=== PATIENT | female | born 1980 | race Caucasian/White ===

== ENCOUNTER 2018-08-27 16:52 | Emergency (ER) | payer MEDICAID ==
[~2018-08-27] VITALS: Ht 162.6 cm; Wt 90.0 kg
[2018-08-27 17:34] VITALS: BP 117/84
[2018-08-27] MEDS ORDERED: ALBUTEROL SULFATE/IPRATROPIU 3 ML SOL IH ONE ×2 (17:35→17:45)
--- NOTE | 2018-08-27 17:35 | NUR ---
PATIENT AMBULATED TO ER BED 6.
--- NOTE | 2018-08-27 17:45 | NUR ---
38 Y/O F PRESENTS TO THE ED W/C/O SOB TODAY WITH HX OF [place]. PT 6 wks . She has been using her ventolin inhaler with no relief. A1; LMP 07/08/18. Denies abdominal pain or nvd. SKIN IS INTACT, PINK/WARM/DRY; AAOX4, PERRL, WITH EVEN AND STEADY GAIT; BILAT WHEEZES, BREATHING UNLABORED; HR EVEN AND REGULAR, BL PERIPHERAL PULSES PRESENT; PT DENIES ANY FEVER, CP, OR COUGH AT THIS TIME; PT STATES 0/10 PAIN AT THIS TIME; VSS; PATIENT POSITIONED FOR COMFORT; HOB ELEVATED; BEDRAILS UP X2; BED DOWN.
--- NOTE | 2018-08-27 17:48 | NUR ---
RT AT BEDSIDE. PT SPEAKING IN FULL SENTENCES
[2018-08-27 18:45] VITALS: BP 119/85
--- NOTE | 2018-08-27 18:46 | NUR ---
Patient discharged with v/s stable. Written and verbal after care instructions given and explained. Patient alert, oriented and verbalized understanding of instructions. Ambulatory with steady gait. All questions addressed prior to discharge. ID band removed. Patient advised to follow up with PMD. Rx of VENTOLIN given. Patient educated on indication of medication including possible reaction and side effects. Opportunity to ask questions provided and answered.
== END 2018-08-27 18:46 | disposition home or self-care (01) ==
LOC: MED 16:52
DX: O99.511 Diseases of the respiratory system complicating pregnancy, first trimester (principal); J45.909 Unspecified asthma, uncomplicated; I10 Essential (primary) hypertension; Z3A.01 Less than 8 weeks gestation of pregnancy
CPT/HCPCS: 94640; 99283; J7620

== ENCOUNTER 2020-07-18 14:07 | Emergency (ER) | payer MEDICAID ==
[~2020-07-18] VITALS: Ht 160 cm; Wt 97.5 kg
--- NOTE | 2020-07-18 14:27 | NUR ---
CALLED PT FOR TRIAGE NO ANSWER.
[2020-07-18] MEDS ORDERED: ONDANSETRON 4 MG ODT PO ONE (14:45)
[2020-07-18] MEDS ORDERED: LACTATED RINGERS 1,000 ML IV ONE ×3 (14:45→17:25)
[2020-07-18] MEDS ORDERED: MORPHINE SULFATE 4 MG/ML SYR IM ONE (14:45)
[2020-07-18 15:09] VITALS: BP 149/89
--- NOTE | 2020-07-18 15:15 | NUR ---
PT SENT TO ER LOBBY TO WAIT FOR AVAILALBE SPACE IN ED. PT MADE AWARE OF CT WITH CONTRAST AND NEED FOR IV. EXPLAINED TO PT THAT SHE CANNOT BE IN LOBBY AND MEDICATED IN LOBBY WITHOUT SUPERVISION. PT VERBALIZED UNDERSTANDING.
[2020-07-18 15:19] LABS: BASOPHILS % (AUTO) 0.6 % (0.0-2.0); EOSINOPHILS # (AUTO) 0.2 K/uL (0-0.4); EOSINOPHILS % (AUTO) 3.6 % (0.0-4.0); HEMATOCRIT 37.8 % (36-48); HEMOGLOBIN 12.7 g/dL (12.0-16.0); LYMPHOCYTES # (AUTO) 1.4 K/uL (2.5-16.5); LYMPHOCYTES % (AUTO) 26.8 % (20.5-51.1); MEAN CORPUSCULAR HEMOGLOBIN 28 pg (27-31); MEAN CORPUSCULAR HGB CONC 34 g/dL (33-37); MONOCYTES # (AUTO) 0.6 K/uL (0.8-1.0); MONOCYTES % (AUTO) 11.8 % (1.7-9.3); NEUTROPHILS # (AUTO) 2.9 K/uL (1.8-7.7); NEUTROPHILS % (AUTO) 57.2 % (42.2-75.2); PLATELET COUNT (AUTO) 104 K/uL (140-450); RED CELL DISTRIBUTION WIDTH 14.3 % (11.6-13.7); WHITE BLOOD COUNT (AUTO) 5.1 K/uL (4.8-10.8)
[2020-07-18 15:41] LABS: ALBUMIN 4.2 g/dL (3.4-5.0); ANION GAP 12.8 (8-16); CARBON DIOXIDE 24.8 mmol/L (21-32); CREATININE 0.7 mg/dL (0.6-1.3); POTASSIUM 3.6 mmol/L (3.5-5.1); TOTAL BILIRUBIN 0.8 mg/dL (0.0-1.0)
[2020-07-18] MEDS ORDERED: ONDANSETRON 4 MG/2 ML VIAL IVP ONE (16:25)
[2020-07-18] MEDS ORDERED: MORPHINE SULFATE 4 MG/ML SYR IVP ONE (16:25)
--- NOTE | 2020-07-18 16:30 | NUR ---
U/A WAS COLLECTED AND PREG WAS DONE, SENT TO LAB
--- NOTE | 2020-07-18 17:10 | NUR ---
PT WENT TO CT
--- NOTE | 2020-07-18 17:37 | NUR ---
PT BACK FROM CT
--- NOTE | 2020-07-18 18:36 | NUR ---
PT WAS D/C WITH VSS. PT IV WAS D/C. PT WAS INSTRCUTED TO FOLLOW UP WITH PCP AND EDUCATED ON IN HOME CARE. PT UNDWERSTOOD. NO SIGN OF DISTRESS NOTED. PT AMBULATED OUT OF ER. PT RECIEVED MEDICATION PRESCRIPTIONS. FAMILY TO MASTER PILOT PT.
[2020-07-18 18:37] VITALS: BP 143/78
--- NOTE | 2020-07-18 18:39 | NUR ---
PT RECIEVED A COPY OF HER CT REPORT
[2020-07-18 20:38] LABS: APPEARANCE,URINE SL CLOUDY (CLEAR); BILIRUBIN,URINE NEGATIVE (NEGATIVE); BLOOD, URINE NEGATIVE (NEGATIVE); COLOR,URINE YELLOW (YELLOW); LEUKOCYTE ESTERASE ,URINE NEGATIVE (NEGATIVE); NITRITE, URINE NEGATIVE (NEGATIVE); UGLUCOSE NEGATIVE (NEGATIVE)
--- NOTE | 2020-07-19 12:40 | NUR ---
LATE ENTRY -- LR INFUSION END TIME 6002 07/18/20
== END 2020-07-18 18:38 | disposition home or self-care (01) ==
LOC: MED 14:07
DX: N20.0 Calculus of kidney (principal); J45.909 Unspecified asthma, uncomplicated; E11.9 Type 2 diabetes mellitus without complications; I10 Essential (primary) hypertension; Z98.890 Other specified postprocedural states; Z98.51 Tubal ligation status
CPT/HCPCS: 36415; 74177; 80053; 81003; 81025; 83690; 84703; 85025; 87086; 96361; 96374; 96375; 99285; J2270; J2405; J7120; Q9967